=== PATIENT | male | born 1960 | race Caucasian/White ===

== ENCOUNTER 2019-10-31 12:16 | Emergency (ER) | payer BC, OTHER, SELFPAY ==
[~2019-10-31] VITALS: Ht 193 cm; Wt 138.0 kg
[2019-10-31 12:47] VITALS: BP 120/69
[2019-10-31] MEDS ORDERED: MECLIZINE CHEWABLE 25 MG TAB PO ONE (13:00)
[2019-10-31] MEDS ORDERED: MECLIZINE CHEWABLE 25 MG TAB ONE (14:08)
--- NOTE | 2019-10-31 14:13 | NUR ---
ASSUMED CARE OF PATIENT IN ROOM 2. DR. LEE AT BEDSIDE. PT MEDICATED WITH MECLIZINE.
--- NOTE | 2019-10-31 14:56 | NUR ---
Patient given discharge instructions and they have confirmed that they understand the instructions. Patient ambulatory with steady gait.
== END 2019-10-31 14:59 | disposition home or self-care (01) ==
LOC: ED 14:42
DX: S06.0X0A Concussion without loss of consciousness, initial encounter (principal); W00.0XXA Fall on same level due to ice and snow, initial encounter; Y93.89 Activity, other specified; Y92.098 Other place in other non-institutional residence as the place of occurrence of the external cause; Y99.8 Other external cause status
CPT/HCPCS: 70450; 93005; 99284

== ENCOUNTER 2020-04-20 14:02 | Inpatient (IN) | payer BC ==
[~2020-04-20] VITALS: Ht 193 cm; Wt 122.5 kg
--- NOTE | 2020-04-20 14:15 | NUR ---
WAYNE KEEN CELL NUMBER: [phone]
--- NOTE | 2020-04-20 14:35 | NUR ---
PT WITH C/O SOB WORSENING TODAY, BEGAN APPROX ONE MONTH AGO. PT WITH ACCESS TO PULSE OX AT HOME, PT CHECKED PT STATES HE WAS SATING IN 70S. PT ON 6L IN TRIAGE SATING 80S. PT ALSO WITH C/O CP 03/20, SUBSTERNAL. PT IN PLACED ON 10L NOW SATING 87-89% ERMD AWARE. PT TO CARD MONITOR, BP, CONT PULSE OX. PIV INITIATED
[2020-04-20 14:44] LABS: BASOPHILS # (AUTO) 0.03 x10^3/uL (0-0.1); BASOPHILS % (AUTO) 0 % (0-1); EOSINOPHILS # (AUTO) 0.27 x10^3/uL (0-0.4); EOSINOPHILS % (AUTO) 3 % (1-7); LYMPHOCYTES # (AUTO) 1.35 x10^3/uL (1-3.4); LYMPHOCYTES % (AUTO) 14 % (22-44); MD NO; MEAN CORPUSCULAR HEMOGLOBIN 27.6 pg (27.5-34.5); MEAN CORPUSCULAR HGB CONC 31.5 g/dL (33.2-36.2); MEAN CORPUSCULAR VOLUME 87.5 fL (81-97); MEAN PLATELET VOLUME 9.6 fL (7.4-10.4); MONOCYTES # (AUTO) 0.63 x10^3/uL (0.2-0.8); MONOCYTES % (AUTO) 7 % (2-9); NEUTROPHILS % (AUTO) 76 % (42-75); PLATELET COUNT 167 x10^3/uL (130-400); RED BLOOD COUNT 6.16 x10^6/uL (4.38-5.82); RED CELL DISTRIBUTION WIDTH 14.6 % (9.4-14.8)
[2020-04-20 14:47] LABS: ALANINE AMINOTRANSFERASE 28 U/L (12-78); ALBUMIN 3.6 g/dL (3.4-5.0); ANION GAP 5 mmol/L (5-15); CALCIUM 9.5 mg/dL (8.5-10.1); CHLORIDE 105 mmol/L (98-107); CREATININE 1.23 mg/dL (0.7-1.3)
[2020-04-20 14:52] LABS: ALKALINE PHOSPHATASE 130 U/L (45-117); BILIRUBIN,TOTAL 0.5 mg/dL (0.2-1.0); TOTAL PROTEIN 7.6 g/dL (6.4-8.2)
[2020-04-20 14:56] LABS: D-DIMER (DIC) 12.03 ug/mlFEU (0.00-0.52); PROTIME 11.3 Seconds (9.6-11.5)
[2020-04-20 14:59] LABS: TROPONIN I 0.244 ng/mL (0.000-0.045)
--- NOTE | 2020-04-20 15:08 | NUR ---
TASK RN NOTE: BP CUFF REPOSITIONED, LAB AT BEDSIDE FOR ABG DRAW. Addendum: 04/20/20 at 1509 by ELENI TASK RN NOTE: BP CUFF REPOSITIONED, LAB AT BEDSIDE FOR VBG DRAW.
[2020-04-20 15:17] LABS: PH, VENOUS 7.419 pH (7.320-7.420)
--- NOTE | 2020-04-20 15:19 | NUR ---
PT WITH CRITICAL TROP 0.244/ DIMER 12.03. REPORTED TO PROVIDER, PT ON 15L SATING 90-91% ERMD AWARE. PT TO GO TO CTA. PT STATES CHEST PAIN DOWN 2/10 FROM 04/19. PT REPORTS WORK OF BREATHING IMPROVED. WILL CONTINUE TO MONITOR
[2020-04-20] MEDS ORDERED: HEPARIN 25,000 UNITS/250ML PMX 250 ML ONE (15:28)
[2020-04-20] MEDS ORDERED: HEPARIN 5,000 UNITS/ML, 1ML ONE (15:28)
[2020-04-20] MEDS ORDERED: HEPARIN 5,000 UNITS/ML, 1ML IV PRN (15:30)
[2020-04-20] MEDS ORDERED: HEPARIN 25,000 UNITS/250ML PMX 250 ML IV PRN (15:30)
[2020-04-20] MEDS ORDERED: HEPARIN 5,000 UNITS/ML, 1ML IV ONE (15:30)
[2020-04-20] MEDS ORDERED: OMNIPAQUE 350 MG/ML, 100ML BOTTLE ONE (15:32)
[2020-04-20 15:41] LABS: ACETONE, SERUM Small (20mg/dL) (Negative)
--- NOTE | 2020-04-20 15:42 | NUR ---
[facility] CALLED. DR WHITEHEAD AT BEDSIDE TO EVAL. PT TO GO TO [facility], HEPARIN GTT AND BOLUS STARTED PER ERMD.
[2020-04-20] MEDS ORDERED: BISACODYL 10 MG SUPP PR PRN (16:00)
[2020-04-20] MEDS ORDERED: ONDANSETRON 2MG/ML, 2ML IVPush PRN (16:00)
[2020-04-20] MEDS ORDERED: ALTEPLASE 10 MG in SODIUM CHLORIDE 0.9% 240 ML IV ONE (16:00)
[2020-04-20] MEDS ORDERED: LABETALOL 5MG/ML, 20ML IVPush PRN (16:00)
[2020-04-20] MEDS ORDERED: morphine SULFATE 10 MG/ML, 1ML IVPush PRN (16:00)
[2020-04-20] MEDS ORDERED: POLYETHYLENE GLYCOL 17 GM PACKET PO PRN (16:00)
[2020-04-20] MEDS: INSULIN LISPRO 100 UNITS/ML, PEN SQ-INSULIN SCH ×2 (16:00→21:21)
[2020-04-20] MEDS ORDERED: OXYcodone IR 5MG TABLET PO PRN (16:00)
[2020-04-20] MEDS ORDERED: ACETAMINOPHEN 325 MG TABLET PO PRN (16:00)
[2020-04-20] MEDS ORDERED: LIDOCAINE 2%, 20ML ONE (16:31)
[2020-04-20] MEDS ORDERED: FENTANYL PF 100 MCG/2ML ONE (16:31)
[2020-04-20] MEDS ORDERED: MIDAZOLAM 1 MG/ML, 5ML ONE (16:31)
[2020-04-20] MEDS ORDERED: SODIUM CHLORIDE 0.9% 1,000 ML IV SCH (17:34)
[2020-04-20] MEDS ORDERED: MORPHINE SULFATE 4 MG/ML, 1ML IVPush PRN (18:00)
[2020-04-20] MEDS ORDERED: HYDROcodone/APAP 5/325 TABLET PO PRN (18:00)
[2020-04-20] MEDS ORDERED: SODIUM CHLORIDE FLUSH 3ML SYRINGE IVF PRN (18:00)
[2020-04-20] MEDS ORDERED: LORazepam 2 MG/ML, 1ML IV PRN (18:00)
[2020-04-20 20:04] VITALS: BP 107/81
[2020-04-20] MEDS ORDERED: RIVAROXABAN 20 MG TABLET PO SCH (22:00)
[2020-04-21] MEDS: RIVAROXABAN 15 MG TABLET PO SCH ×3 (00:03→21:21)
[2020-04-21 05:02] LABS: BASOPHILS # (AUTO) 0.05 x10^3/uL (0-0.1); BASOPHILS % (AUTO) 1 % (0-1); EOSINOPHILS # (AUTO) 0.31 x10^3/uL (0-0.4); EOSINOPHILS % (AUTO) 3 % (1-7); LYMPHOCYTES # (AUTO) 1.65 x10^3/uL (1-3.4); LYMPHOCYTES % (AUTO) 18 % (22-44); MD NO; MEAN CORPUSCULAR HEMOGLOBIN 28.2 pg (27.5-34.5); MEAN CORPUSCULAR HGB CONC 32.4 g/dL (33.2-36.2); MEAN PLATELET VOLUME 9.6 fL (7.4-10.4); MONOCYTES # (AUTO) 0.75 x10^3/uL (0.2-0.8); MONOCYTES % (AUTO) 8 % (2-9); NEUTROPHILS # (AUTO) 6.44 x10^3/uL (1.8-6.8); NEUTROPHILS % (AUTO) 70 % (42-75); PLATELET COUNT 155 x10^3/uL (130-400); RED BLOOD COUNT 5.59 x10^6/uL (4.38-5.82); RED CELL DISTRIBUTION WIDTH 14.4 % (9.4-14.8)
[2020-04-21 05:03] VITALS: BP 91/70
[2020-04-21 05:04] LABS: ALANINE AMINOTRANSFERASE 26 U/L (12-78); ALBUMIN 3.1 g/dL (3.4-5.0); ANION GAP 4 mmol/L (5-15); CALCIUM 8.2 mg/dL (8.5-10.1); CHLORIDE 108 mmol/L (98-107); CREATININE 1.01 mg/dL (0.7-1.3)
[2020-04-21 05:06] LABS: ALKALINE PHOSPHATASE 104 U/L (45-117); BILIRUBIN,TOTAL 0.6 mg/dL (0.2-1.0); TOTAL PROTEIN 6.9 g/dL (6.4-8.2)
[2020-04-21] MEDS: INSULIN LISPRO 100 UNITS/ML, PEN SQ-INSULIN SCH ×4 (06:36→21:20)
[2020-04-21 08:16] LABS: TROPONIN I 0.261 ng/mL (0.000-0.045)
[2020-04-21] MEDS: SENNA/DOCUSATE TABLET PO SCH (09:00)
[2020-04-21 13:02] VITALS: BP 102/68
[2020-04-21] MEDS: metFORMIN 500 MG TABLET PO SCH (16:24)
[2020-04-21 19:08] VITALS: BP 114/75
[2020-04-22 00:11] VITALS: BP 108/63
[2020-04-22] MEDS: INSULIN LISPRO 100 UNITS/ML, PEN SQ-INSULIN SCH ×4 (08:23→21:25)
[2020-04-22] MEDS: metFORMIN 500 MG TABLET PO SCH ×2 (08:24→17:46)
[2020-04-22] MEDS: RIVAROXABAN 15 MG TABLET PO SCH ×2 (08:24→21:04)
[2020-04-22] MEDS: SENNA/DOCUSATE TABLET PO SCH (08:24)
[2020-04-22 08:29] VITALS: BP 120/83
[2020-04-22] MEDS ORDERED: MIDAZOLAM 1 MG/ML, 5ML ONE (16:30)
[2020-04-22] MEDS ORDERED: FENTANYL PF 100 MCG/2ML ONE (16:30)
[2020-04-22] MEDS ORDERED: LIDOCAINE 2%, 20ML ONE (16:31)
[2020-04-22 18:42] VITALS: BP 105/71
[2020-04-22 20:59] LABS: OCCULT BLOOD NEGATIVE (NEGATIVE)
[2020-04-23 03:00] VITALS: BP 104/60
[2020-04-23 06:28] VITALS: BP 104/68
[2020-04-23] MEDS: INSULIN LISPRO 100 UNITS/ML, PEN SQ-INSULIN SCH ×2 (07:00→12:54)
[2020-04-23] MEDS: SENNA/DOCUSATE TABLET PO SCH (09:00)
[2020-04-23] MEDS: metFORMIN 500 MG TABLET PO SCH (09:48)
[2020-04-23] MEDS: RIVAROXABAN 15 MG TABLET PO SCH (09:48)
[2020-04-23] MEDS ORDERED: GLYB2.5T2 PO (11:21)
[2020-04-23] MEDS ORDERED: RIVA20TA PO (11:21)
[2020-04-23] MEDS ORDERED: RIVA15TA PO (11:21)
[2020-04-23] MEDS ORDERED: METF500T PO (11:21)
[2020-04-23 12:25] VITALS: BP 119/73
[2020-05-12] MEDS ORDERED: RIVAROXABAN 20 MG TABLET PO SCH (17:00)
== END 2020-04-23 16:55 | disposition home or self-care (01) | DRG 166 ==
LOC: ED 15:44 → EDIP 15:49 → CCU 18:32 → 5SO 04-21 14:14 → DCLOUNGE 04-23 16:18
PROVIDERS: ADMIT Internal Medicine; ATTEND Hospitalist
PROC: 3E05317 Introduction of Other Thrombolytic into Peripheral Artery, Percutaneous Approach (ICD-10-PCS; 2020-04-20)
PROC: 06H03DZ Insertion of Intraluminal Device into Inferior Vena Cava, Percutaneous Approach (ICD-10-PCS; principal; 2020-04-22)
DX: I26.99 Other pulmonary embolism without acute cor pulmonale (principal); I21.4 Non-ST elevation (NSTEMI) myocardial infarction; J96.01 Acute respiratory failure with hypoxia; I82.401 Acute embolism and thrombosis of unspecified deep veins of right lower extremity; E22.2 Syndrome of inappropriate secretion of antidiuretic hormone; E66.01 Morbid (severe) obesity due to excess calories; E11.65 Type 2 diabetes mellitus with hyperglycemia; Z79.84 Long term (current) use of oral hypoglycemic drugs; Z68.32 Body mass index [BMI] 32.0-32.9, adult
CPT/HCPCS: 36415; 84145; J3490; 37191; 37211; 71045; 71275; 80053; 82010; 82272; 82728; 82803; 82962; 83036; 83605; 83615; 83880; 84443; 84484; 85025; 85049; 85379; 85384; 85520; 85610; 85730; 86140; 87040; 87081; 87635; 93005; 93306; 93451; 93970; 99156; 99157; C1760; C1769; C1894; G0378; J1644; J2250; J2997; J3010; Q9967; C1880; J1815; J7050

== ENCOUNTER → 2020-08-01 | Outpatient (CLI) | payer BC ==
[~2020-08-01] MED LIST: GLYB2.5T2 PO; METF500T PO; RIVA15TA PO; RIVA20TA PO
== END | disposition home or self-care (01) ==
LOC: RAD 10:18
PROVIDERS: ATTEND Internal Medicine Clinical Cardiac Electrophysiology
DX: I08.0 Rheumatic disorders of both mitral and aortic valves (principal); I82.509 Chronic embolism and thrombosis of unspecified deep veins of unspecified lower extremity; Z79.01 Long term (current) use of anticoagulants
CPT/HCPCS: 93306; 93356; 93970

== ENCOUNTER 2020-08-28 09:54 | Day surgery (SDC) | payer BC ==
[~2020-08-28] VITALS: Ht 193 cm; Wt 131.8 kg
[2020-08-28 11:13] LABS: BASOPHILS % (AUTO) 1 % (0-1); EOSINOPHILS % (AUTO) 4 % (1-7); LYMPHOCYTES % (AUTO) 21 % (22-44); MEAN CORPUSCULAR HEMOGLOBIN 26.8 pg (27.5-34.5); MEAN CORPUSCULAR HGB CONC 31.7 g/dL (33.2-36.2); MEAN PLATELET VOLUME 8.4 fL (7.4-10.4); MONOCYTES % (AUTO) 12 % (2-9); NEUTROPHILS % (AUTO) 61 % (42-75); PLATELET COUNT 210 x10^3/uL (130-400); RED BLOOD COUNT 5.48 x10^6/uL (4.38-5.82); RED CELL DISTRIBUTION WIDTH 15.6 % (9.4-14.8)
[2020-08-28 11:14] LABS: MD NO
[2020-08-28 11:39] VITALS: BP 121/71
[2020-08-28] MEDS ORDERED: LISI5TAB7 PO (11:39)
[2020-08-28] MEDS ORDERED: NAPR-685 PO (11:39)
[2020-08-28 11:48] LABS: ANION GAP 3 mmol/L (5-15); CALCIUM 8.6 mg/dL (8.5-10.1); CHLORIDE 107 mmol/L (98-107); CREATININE 0.89 mg/dL (0.7-1.3)
[2020-08-28] MEDS ORDERED: FENTANYL PF 100 MCG/2ML ONE (13:52)
[2020-08-28] MEDS ORDERED: LIDOCAINE 2%, 20ML ONE (13:52)
[2020-08-28] MEDS ORDERED: MIDAZOLAM 1 MG/ML, 5ML ONE (13:52)
[2020-08-28] MEDS ORDERED: SODIUM CHLORIDE 0.9% 1,000 ML IV SCH (15:30)
== END 2020-08-28 16:12 | disposition home or self-care (01) ==
LOC: CACL 09:54
PROVIDERS: ATTEND Internal Medicine Cardiovascular Disease
DX: Z45.89 Encounter for adjustment and management of other implanted devices (principal); I82.5Y3 Chronic embolism and thrombosis of unspecified deep veins of proximal lower extremity, bilateral; I26.99 Other pulmonary embolism without acute cor pulmonale; Z79.899 Other long term (current) drug therapy; Z79.01 Long term (current) use of anticoagulants; Z98.890 Other specified postprocedural states
CPT/HCPCS: 36415; 37193; 75625; 80048; 85025; 99156; C1769; C1773; C1894; J2250; J3010; Q9967

== ENCOUNTER 2020-10-10 03:05 | Inpatient (IN) | payer BC ==
[~2020-10-10] VITALS: Ht 193 cm; Wt 133.4 kg
[~2020-10-10 03:05] MED LIST changes: +LISI5TAB7 PO; +NAPR-685 PO
[2020-10-10] MEDS ORDERED: ACETAMINOPHEN 500 MG TABLET ONE (03:44)
[2020-10-10] MEDS ORDERED: SODIUM CHLORIDE 0.9% 1,000ML IVBOLUS ONE (04:00)
[2020-10-10] MEDS ORDERED: ACETAMINOPHEN 500 MG TABLET PO ONE (04:00)
[2020-10-10 04:32] LABS: BASOPHILS % (AUTO) 0 % (0-1); EOSINOPHILS % (AUTO) 1 % (1-7); LYMPHOCYTES % (AUTO) 14 % (22-44); MEAN CORPUSCULAR HEMOGLOBIN 27.5 pg (27.5-34.5); MEAN CORPUSCULAR HGB CONC 33.2 g/dL (33.2-36.2); MONOCYTES % (AUTO) 12 % (2-9); NEUTROPHILS % (AUTO) 74 % (42-75); PLATELET COUNT 135 x10^3/uL (130-400); RED BLOOD COUNT 4.92 x10^6/uL (4.38-5.82); RED CELL DISTRIBUTION WIDTH 15.7 % (9.4-14.8)
[2020-10-10 04:34] LABS: ALBUMIN 3.3 g/dL (3.4-5.0); ANION GAP 6 mmol/L (5-15); CALCIUM 7.6 mg/dL (8.5-10.1); CHLORIDE 108 mmol/L (98-107)
[2020-10-10 04:39] LABS: ALANINE AMINOTRANSFERASE 33 U/L (12-78); ALKALINE PHOSPHATASE 70 U/L (45-117); BILIRUBIN,TOTAL 0.5 mg/dL (0.2-1.0); CREATININE 1.04 mg/dL (0.7-1.3); TOTAL PROTEIN 6.9 g/dL (6.4-8.2); TROPONIN I < 0.015 ng/mL (0.000-0.045)
[2020-10-10 04:49] LABS: MD NO
[2020-10-10] MEDS ORDERED: CEFTRIAXONE PMX 1GM/50ML 50 ML IV ONE ×2 (06:00→10:00)
[2020-10-10] MEDS ORDERED: AZITHROMYCIN 500 MG in SODIUM CHLORIDE 0.9% 250 ML IV ONE (06:00)
[2020-10-10] MEDS ORDERED: OMNIPAQUE 350 MG/ML, 100ML BOTTLE ONE (06:43)
[2020-10-10] MEDS ORDERED: CEFTRIAXONE PMX 1GM/50ML 50 ML ONE (06:47)
[2020-10-10] MEDS ORDERED: ONDANSETRON 2MG/ML, 2ML IVPush PRN (07:00)
[2020-10-10] MEDS ORDERED: GUAIFENESIN/DM 200-20MG, 10ML UDC PO PRN (07:00)
[2020-10-10] MEDS ORDERED: POLYETHYLENE GLYCOL 17 GM PACKET PO PRN (07:00)
[2020-10-10] MEDS ORDERED: IBUPROFEN 600 MG TABLET PO PRN (07:00)
[2020-10-10] MEDS ORDERED: ACETAMINOPHEN 325 MG TABLET PO PRN (07:00)
[2020-10-10] MEDS ORDERED: MELATONIN 5 MG TABLET PO PRN (07:00)
[2020-10-10] MEDS ORDERED: BISACODYL 10 MG SUPP PR PRN (07:00)
[2020-10-10] MEDS ORDERED: CEFTRIAXONE PMX 2GM/50ML 50 ML IVPB SCH (07:00)
--- NOTE | 2020-10-10 07:11 | NUR ---
REPORT FROM JQ, ASSUME CARE OF PT AT THIS TIME.
--- NOTE | 2020-10-10 07:55 | NUR ---
MONITOR CHECK, VSS, PT WITHOUT COMPLAINT.
--- NOTE | 2020-10-10 08:05 | NUR ---
ATTEMPT TO CALL REPORT, RN UNAVAILABLE.
[2020-10-10 08:08] LABS: TROPONIN I < 0.015 ng/mL (0.000-0.045)
[2020-10-10] MEDS ORDERED: metFORMIN 500 MG TABLET ONE (08:23)
[2020-10-10] MEDS ORDERED: CHOLECALCIFEROL 5,000u TAB ONE (08:23)
[2020-10-10] MEDS ORDERED: SENNA/DOCUSATE TABLET ONE (08:23)
[2020-10-10] MEDS ORDERED: DEXAMETHASONE 4 MG/ML, 1ML ONE (08:23)
[2020-10-10] MEDS ORDERED: LISINOPRIL 5 MG TABLET ONE (08:23)
[2020-10-10] MEDS ORDERED: ZINC SULFATE 220 MG CAPSULE ONE (08:24)
[2020-10-10] MEDS ORDERED: DOXYCYCLINE 100MG TABLET ONE (08:24)
[2020-10-10] MEDS ORDERED: ASCORBIC ACID 500 MG TABLET ONE (08:24)
[2020-10-10] MEDS: SENNA/DOCUSATE TABLET PO SCH (08:30)
[2020-10-10] MEDS: DEXAMETHASONE 4 MG/ML, 1ML IVPush SCH (08:30)
[2020-10-10] MEDS: DOXYCYCLINE 100MG CAP PO SCH ×2 (08:31→21:07)
[2020-10-10] MEDS: metFORMIN 500 MG TABLET PO SCH ×2 (08:31→08:34)
[2020-10-10] MEDS: ZINC SULFATE 220 MG CAPSULE PO SCH (08:31)
[2020-10-10] MEDS: LISINOPRIL 5 MG TABLET PO SCH (08:32)
[2020-10-10] MEDS: CHOLECALCIFEROL 5,000u TAB PO SCH (08:43)
--- NOTE | 2020-10-10 08:48 | NUR ---
ATTEMPT TO CALL REPORT AGAIN, RN UNAVAILABLE.
[2020-10-10] MEDS ORDERED: ASCORBIC ACID 250 MG TAB PO SCH (09:00)
[2020-10-10] MEDS: INSULIN LISPRO 100 UNITS/ML, PEN SQ-INSULIN SCH ×3 (11:00→21:08)
[2020-10-10] MEDS: THIAMINE 100MG TABLET PO SCH ×2 (11:03→21:07)
[2020-10-10] MEDS: MULTIVITAMIN 1 TABLET PO SCH (11:03)
[2020-10-10 11:11] VITALS: BP 100/67
[2020-10-10 12:59] VITALS: BP 104/70
[2020-10-10 14:07] LABS: TROPONIN I < 0.015 ng/mL (0.000-0.045)
[2020-10-10 14:27] VITALS: BP 100/67
[2020-10-10] MEDS: ASCORBIC ACID 500 MG TABLET PO SCH ×2 (16:58→21:07)
[2020-10-10] MEDS: RIVAROXABAN 20 MG TABLET PO SCH (16:58)
[2020-10-10 20:24] VITALS: BP 107/66
[2020-10-10] MEDS ORDERED: INSULIN GLARGINE 100 UNITS/ML, PEN SQ-INSULIN SCH (21:00)
[2020-10-11 02:26] VITALS: BP 114/69
[2020-10-11 05:47] LABS: BASOPHILS % (AUTO) 0 % (0-1); EOSINOPHILS % (AUTO) 0 % (1-7); LYMPHOCYTES % (AUTO) 13 % (22-44); MEAN CORPUSCULAR HEMOGLOBIN 27.6 pg (27.5-34.5); MEAN CORPUSCULAR HGB CONC 33.4 g/dL (33.2-36.2); MEAN PLATELET VOLUME 8.9 fL (7.4-10.4); MONOCYTES % (AUTO) 18 % (2-9); NEUTROPHILS % (AUTO) 70 % (42-75); PLATELET COUNT 173 x10^3/uL (130-400); RED BLOOD COUNT 5.33 x10^6/uL (4.38-5.82); RED CELL DISTRIBUTION WIDTH 15.6 % (9.4-14.8)
[2020-10-11 05:50] LABS: ANION GAP 4 mmol/L (5-15); CHLORIDE 107 mmol/L (98-107)
[2020-10-11 05:52] LABS: CALCIUM 8.8 mg/dL (8.5-10.1); CREATININE 1.12 mg/dL (0.7-1.3)
[2020-10-11 06:12] LABS: MD SCAN
[2020-10-11 06:52] VITALS: BP 126/84
[2020-10-11] MEDS ORDERED: CEFTRIAXONE PMX 2GM/50ML 50 ML IVPB SCH (08:00)
[2020-10-11] MEDS: ASCORBIC ACID 500 MG TABLET PO SCH ×3 (08:28→20:41)
[2020-10-11] MEDS: DEXAMETHASONE 4 MG/ML, 1ML IVPush SCH (08:28)
[2020-10-11] MEDS: LISINOPRIL 5 MG TABLET PO SCH (08:28)
[2020-10-11] MEDS: DOXYCYCLINE 100MG CAP PO SCH ×2 (08:29→20:41)
[2020-10-11] MEDS: MULTIVITAMIN 1 TABLET PO SCH (08:29)
[2020-10-11] MEDS: SENNA/DOCUSATE TABLET PO SCH (08:29)
[2020-10-11] MEDS: CHOLECALCIFEROL 5,000u TAB PO SCH (08:30)
[2020-10-11] MEDS: THIAMINE 100MG TABLET PO SCH ×2 (08:30→20:41)
[2020-10-11] MEDS: INSULIN LISPRO 100 UNITS/ML, PEN SQ-INSULIN SCH ×4 (08:30→20:43)
[2020-10-11] MEDS: ZINC SULFATE 220 MG CAPSULE PO SCH (08:31)
[2020-10-11] MEDS ORDERED: INSULIN GLARGINE 100 UNITS/ML, PEN SQ-INSULIN SCH (09:00)
[2020-10-11] MEDS: CEFDINIR 300 MG CAPSULE PO SCH ×2 (10:24→20:41)
[2020-10-11 12:29] VITALS: BP 127/77
[2020-10-11] MEDS: RIVAROXABAN 20 MG TABLET PO SCH (16:40)
[2020-10-11 19:01] VITALS: BP 134/76
[2020-10-11] MEDS: INSULIN GLARGINE 100 UNITS/ML, PEN SQ-INSULIN SCH (20:44)
[2020-10-12 00:31] VITALS: BP 102/66
[2020-10-12] MEDS ORDERED: INSU100I13 SQ-INSULIN (06:02)
[2020-10-12] MEDS ORDERED: INSU100I11 SQ-INSULIN (06:02)
[2020-10-12] MEDS ORDERED: DOXY100C2 PO (06:40)
[2020-10-12] MEDS ORDERED: DEXA1TAB5 PO (06:40)
[2020-10-12] MEDS ORDERED: CEFD300C37 PO (06:40)
[2020-10-12] MEDS: INSULIN LISPRO 100 UNITS/ML, PEN SQ-INSULIN SCH (07:00)
[2020-10-12 07:33] VITALS: BP 103/68
[2020-10-12] MEDS: CHOLECALCIFEROL 5,000u TAB PO SCH (07:37)
[2020-10-12] MEDS: SENNA/DOCUSATE TABLET PO SCH (07:38)
[2020-10-12] MEDS: MULTIVITAMIN 1 TABLET PO SCH (07:38)
[2020-10-12] MEDS: LISINOPRIL 5 MG TABLET PO SCH (07:38)
[2020-10-12] MEDS: THIAMINE 100MG TABLET PO SCH (07:38)
[2020-10-12] MEDS: ZINC SULFATE 220 MG CAPSULE PO SCH (07:39)
[2020-10-12] MEDS: ASCORBIC ACID 500 MG TABLET PO SCH (07:39)
[2020-10-12] MEDS: INSULIN GLARGINE 100 UNITS/ML, PEN SQ-INSULIN SCH (07:40)
[2020-10-12] MEDS: DOXYCYCLINE 100MG CAP PO SCH (07:54)
[2020-10-12] MEDS: CEFDINIR 300 MG CAPSULE PO SCH (07:54)
[2020-10-12] MEDS ORDERED: DEXAMETHASONE INTENSOL 1 MG/ML ORAL SOL PO SCH (09:00)
[2020-10-12] MEDS ORDERED: DEXAMETHASONE 1 MG TABLET PO SCH (09:00)
== END 2020-10-12 10:34 | disposition home or self-care (01) | DRG 871 ==
LOC: ED 04:10 → EDIP 06:01 → 3N 09:51
PROVIDERS: ADMIT Internal Medicine; ATTEND Internal Medicine
DX: A41.89 Other specified sepsis (principal); J96.01 Acute respiratory failure with hypoxia; U07.1 COVID-19; J12.89 Other viral pneumonia; D68.69 Other thrombophilia; R65.20 Severe sepsis without septic shock; E11.65 Type 2 diabetes mellitus with hyperglycemia; I10 Essential (primary) hypertension; T38.0X5A Adverse effect of glucocorticoids and synthetic analogues, initial encounter; X58.XXXA Exposure to other specified factors, initial encounter; E66.9 Obesity, unspecified; Z68.36 Body mass index [BMI] 36.0-36.9, adult; Z79.01 Long term (current) use of anticoagulants; Z86.711 Personal history of pulmonary embolism; Z86.718 Personal history of other venous thrombosis and embolism; E11.649 Type 2 diabetes mellitus with hypoglycemia without coma
CPT/HCPCS: 36415; 71045; 71275; 80048; 80053; 82962; 83605; 83615; 84145; 84484; 85025; 85379; 87040; 93005; 99291; G0378; J0456; J0696; J1100; Q9967; J1815; J7030; J7050; U0003

== ENCOUNTER 2021-02-09 01:04 | Emergency (ER) | payer BC ==
[~2021-02-09] VITALS: Ht 182.9 cm; Wt 120.0 kg
[~2021-02-09 01:04] MED LIST changes: +CEFD300C37 PO; +DEXA1TAB5 PO; +DOXY100C2 PO; +INSU100I11 SQ-INSULIN; +INSU100I13 SQ-INSULIN
[2021-02-09] MEDS ORDERED: LIDOCAINE-MPF 1%, 5ML INFIL ONE (01:30)
[2021-02-09] MEDS ORDERED: DIPH,PERTUSS(ACELL),TET VAC/PF 0.5 ML IM-VACC ONE ×2 (01:30→02:32)
[2021-02-09] MEDS ORDERED: LIDOCAINE-MPF 1%, 5ML ONE (02:32)
[2021-02-09 03:15] VITALS: BP 105/64
[2021-02-09] MEDS ORDERED: NEOSPORIN OINT. PKT 1 PACKET ONE (03:22)
== END 2021-02-09 03:47 | disposition home or self-care (01) ==
LOC: ED 03:30
DX: S91.311A Laceration without foreign body, right foot, initial encounter (principal); E11.9 Type 2 diabetes mellitus without complications; Z86.711 Personal history of pulmonary embolism; X58.XXXA Exposure to other specified factors, initial encounter; Y93.89 Activity, other specified; Y92.009 Unspecified place in unspecified non-institutional (private) residence as the place of occurrence of the external cause; Y99.8 Other external cause status
CPT/HCPCS: 12041; 90471; 90715

== ENCOUNTER 2021-03-08 01:32 | Emergency (ER) | payer BC ==
[~2021-03-08] VITALS: Ht 193 cm; Wt 144.0 kg
--- NOTE | 2021-03-08 02:16 | NUR ---
pt came into ed this am for back pain. pt states it has been on going for two months. 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 denies loss mobility. pt nad, Patient is resting comfortably in chair. Vital Signs within normal limits. WCTM.
[2021-03-08] MEDS ORDERED: METHOCARBAMOL 750 MG TABLET PO ONE (02:30)
[2021-03-08] MEDS ORDERED: KETOROLAC 30 MG/1 ML IM ONE (02:30)
[2021-03-08] MEDS ORDERED: KETOROLAC 30 MG/1 ML ONE (03:01)
[2021-03-08] MEDS ORDERED: METHOCARBAMOL 750 MG TABLET ONE (03:01)
--- NOTE | 2021-03-08 03:30 | NUR ---
PT STATES HAS HAD BACK PAIN AND SHOULDER PAIN 0NE WEEK. THAT HAS BEEN GETTING WORSE.
[2021-03-08 04:18] VITALS: BP 98/55
--- NOTE | 2021-03-08 05:15 | NUR ---
Patient given discharge instructions and they have confirmed that they understand the instructions. Patient ambulatory with steady gait. No questions at time of discharge.
== END 2021-03-08 05:39 | disposition home or self-care (01) ==
LOC: ED 04:09
DX: S46.912A Strain of unspecified muscle, fascia and tendon at shoulder and upper arm level, left arm, initial encounter (principal); S46.911A Strain of unspecified muscle, fascia and tendon at shoulder and upper arm level, right arm, initial encounter; I10 Essential (primary) hypertension; E11.9 Type 2 diabetes mellitus without complications; E66.01 Morbid (severe) obesity due to excess calories; Z68.38 Body mass index [BMI] 38.0-38.9, adult; X58.XXXA Exposure to other specified factors, initial encounter; Y93.89 Activity, other specified; Y92.89 Other specified places as the place of occurrence of the external cause; Y99.8 Other external cause status
CPT/HCPCS: 73030; 96372; 99283; J1885

== ENCOUNTER 2021-03-15 20:08 | Emergency (ER) | payer BC ==
[~2021-03-15] VITALS: Ht 193 cm; Wt 141.0 kg
--- NOTE | 2021-03-15 21:00 | NUR ---
REPORT TO NEEL SOLIS.
[2021-03-15] MEDS ORDERED: KETOROLAC 30 MG/1 ML IM ONE (21:30)
[2021-03-15] MEDS ORDERED: DIAZEPAM 5 MG TABLET PO ONE (21:30)
[2021-03-15] MEDS ORDERED: KETOROLAC 30 MG/1 ML ONE (21:50)
[2021-03-15] MEDS ORDERED: DIAZEPAM 5 MG TABLET ONE (21:50)
[2021-03-15 23:13] VITALS: BP 140/71
== END 2021-03-15 23:15 | disposition home or self-care (01) ==
LOC: ED 21:01
DX: M54.5 Low back pain (principal); I10 Essential (primary) hypertension; E11.9 Type 2 diabetes mellitus without complications; E66.01 Morbid (severe) obesity due to excess calories; Z68.37 Body mass index [BMI] 37.0-37.9, adult
CPT/HCPCS: 96372; 99283; J1885